=== PATIENT | male | born 1940 | race Asian ===

== ENCOUNTER 2023-04-25 12:12 | Outpatient (CLI) | payer MEDICARE | END 2023-04-25 23:59 | disposition critical access hospital (66) | LOC: EMS 12:12 | DX: R55 Syncope and collapse (principal); I95.9 Hypotension, unspecified | CPT/HCPCS: A0425; A0427 ==

== ENCOUNTER 2023-04-25 12:50 | Emergency (ER) | payer MEDICARE ==
[2023-04-25 13:12] VITALS: O2SAT 97
[2023-04-25] MEDS ORDERED: SODIUM CHLORIDE 0.9% 1,000 ML IV STA (13:26)
--- NOTE | 2023-04-25 13:32 | ED Physician Documentation ---
PD HPI SYNCOPE - Stated complaint Stated Complaint: FALL/SYNCOPE - Chief complaint Chief Complaint: Neuro - History obtained from History obtained from: Patient, Family - History of Present Illness Witnessed: Witnessed Timing - onset: Today Duration: Seconds (5) Preceding symptoms: No: Headache, Chest pain, Palpitations, Diaphoresis, Dyspnea, Abdominal pain, Nausea / vomiting, Light headed, Generalized weakness Associated symptoms: No: Seizure, Incontinant of urine, Incontinant of stool, Headache, Vision changes, Chest pain, Palpitations, Diaphoresis, Dyspnea, Nausea / vomiting, Abdominal pain Contributing factors: No: Recent med change, Decreased PO intake, Noxious stim ulae Injury occurred: Fell. No: Head injury, Neck injury, Bit tongue Pain level max: 0 Pain level now: 0 - Additional information Additional information: Patient is an 83-year-old male who states that he is visiting from [place]. He was with his family out at [place] today eating at a picnic table. When they were cleaning up he was sitting at the picnic table when the family witnessed him fall backwards and fall unconscious onto the ground. Estimated loss of consciousness was about 5 seconds. Patient states that he had 1 episode of syncope in the past when he was in "diabetic shock". EMS arrived on scene to find the patient hypotensive, 92/50. Improved to 114/60 with 500 mL of IV fluid. No fevers. No chills. No chest pain. No shortness of breath. Does not recall feeling lightheaded, dizzy or having palpitations. Review of Systems Constitutional: denies: Fever, Chills GI: denies: Vomiting, Diarrhea Skin: denies: Rash Musculoskeletal: denies: Neck pain, Back pain Neurologic: denies: Focal weakness, Numbness, Confused PD PAST MEDICAL HISTORY - Past Medical History Past Medical History: Yes Cardiovascular: Hypertension Neuro: CVA Endocrine/Autoimmune: Type 2 diabetes - Allergies Allergies/Adverse Reactions: Allergies Allergy/AdvReac Type Severity Reaction Status Date / Time No Known Drug Allergies Allergy Verified 04/25/23 13:06 - Living Situation Living Situation: reports: With family Living Arrangement: reports: At home - Social History Does the pt have substance abuse?: No PD ED PE NORMAL - Vitals Vital signs reviewed: Yes - General General: Alert and oriented X 3, No acute distress - HEENT HEENT: PERRL, Other (Left-sided facial droop, 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) - Neck Neck: Supple, no meningeal sign - Cardiac Cardiac: RRR, Strong equal pulses - Respiratory Respiratory: No respiratory distress, Clear bilaterally - Abdomen Abdomen: Soft, Non tender, Non distended - Derm Derm: Warm and dry - Extremities Extremities: No edema, No calf tenderness / cord - Neuro Neuro: Alert and oriented X 3, collections attorney 2-12 intact, No motor deficit, No sensory deficit, Normal speech Eye Opening: Spontaneous Motor: Obeys Commands Verbal: Oriented GCS Score: 15 - Psych Psych: Normal mood, Normal affect Results - Vitals Vitals: Vital Signs - 24 hr 04/25/23 04/25/23 04/25/23 13:00 13:32 15:28 Temperature 36.3 C L Heart Rate 73 80 Heart Rate [ 72 Sitting] Heart Rate [ 87 Standing] Heart Rate [ 76 Supine] Respiratory 16 19 Rate Blood Pressure 125/99 H 135/70 H Blood Pressure 120/67 [Sitting] Blood Pressure 121/62 [Standing] Blood Pressure 126/56 L [Supine] O2 Saturation 97 97 Oxygen O2 Source Room air - EKG (time done) 1252 EKG releavant findings:: EKG personally interpreted by author of this note. Relevant findings are: Rate: Rate (enter#) (73) Rhythm: NSR Shallowater: Normal Intervals: Prolonged MI QRS: Normal Ischemia: Normal ST segments - Labs Labs: Laboratory Tests 04/25/23 04/25/23 13:37 13:37 WBC 6.9 RBC 4.08 L Hgb 10.2 L Hct 33.1 L MCV 81.1 MCH 25.0 L MCHC 30.8 L RDW 15.7 H Plt Count 286 MPV 9.8 Neut # (Auto) 5.1 Lymph # (Auto) 0.6 L [place] # (Auto) 0.9 Eos # (Auto) 0.2 Baso # (Auto) 0.1 Absolute Nucleated RBC 0.02 Nucleated RBC % 0.3 Sodium 137 Potassium 3.7 Chloride 103 Carbon Dioxide 26 Anion Gap 8.0 BUN 62 H Creatinine 3.3 H Estimated GFR (MDRD) 18 L Glucose 180 H Calcium 9.0 Total Bilirubin 0.4 AST 20 ALT 17 Alkaline Phosphatase 64 Troponin I High Sens 12.3 Total Protein 7.0 Albumin 3.9 Globulin 3.1 Albumin/Globulin Ratio 1.3 Lipase 170 H PD Medical Decision Making - ED course Complexity details: reviewed results, re-evaluated patient, considered differential (No ST elevation NM, no aortic dissection, no PE, no tension pneumothorax, no aortic aneurysm), d/w patient, d/w family ED course: Lab results reviewed with patient and family. His daughter states his normal kidney function was about 21%. His kidney function seems mildly worsened today. He is no longer hypotensive. His blood sugar is mildly elevated. No arrhythmias on telemetry. No acute findings on laboratory testing otherwise. Does have some mild chronic anemia as well. Ambulating without difficulty here. We did discuss observation in the hospital for telemetry monitoring and further work-up, patient declines this. Patient will follow-up with his PCP when he returns home to [place]. I recommend increasing his fluid intake at home and returning if he worsens. Patient counseled regarding signs and symptoms for which I believe and urgent re-evaluation would be necessary. Patient with good understanding of and agreement to plan and is comfortable going home at this time This document was made in part using voice recognition software. While efforts are made to proofread this document, sound alike and grammatical errors may occur. Departure - Departure Disposition: Home, Self Care Clinical Impression: Hypotension Qualifiers: Hypotension type: unspecified hypotension type Qualified Code(s): I95.9 - Hypotension, unspecified Syncope Qualifiers: Syncope type: unspecified Qualified Code(s): R55 - Syncope and collapse Condition: Good Instructions: ED Hypotension All Causes, ED Fainting Unkn Cause Follow-Up: your,doctor in 1 week [Other] Comments: Please make sure you are drinking plenty of fluids. Please return if you worsen. Continue your current medications at home. Your blood pressure was low when the paramedics arrived and this was likely the cause of you passing out. Your blood pressure has returned to normal with IV fluids. Your lab work does show chronic renal disease that is consistent with your reported chronic renal disease. You also have a mild anemia that is common with chronic renal disease as well. Please follow-up with your doctor in [place] when you return home. Forms: PCP List Discharge Date/Time: 04/25/23 15:29
[2023-04-25 13:42] LABS: BASOPHILS # (AUTO) 0.1 10^3/uL (0.0-0.1); BASOPHILS % (AUTO) 0.7 %; EOSINOPHILS # (AUTO) 0.2 10^3/uL (0.0-0.7); EOSINOPHILS % (AUTO) 2.6 %; HCT - HEMATOCRIT 33.1 % (42.0-52.0); HGB - HEMOGLOBIN 10.2 g/dL (14.0-18.0); LYMPHOCYTES # (AUTO) 0.6 10^3/uL (1.5-3.5); MEAN CORPUSCULAR HGB CONC 30.8 g/dL (32.0-36.0); MEAN CORPUSCULAR VOLUME 81.1 fL (80.0-94.0); MEAN PLATELET VOLUME 9.8 fL (7.4-11.4); MONOCYTES # (AUTO) 0.9 10^3/uL (0.0-1.0); MONOCYTES % (AUTO) 12.5 %; NEUTROPHILS # (AUTO) 5.1 10^3/uL (1.5-6.6); NEUTROPHILS % (AUTO) 74.6 %; NRBC ABSOLUTE COUNT (AUTO) 0.02 x10^3/uL; NUCLEATED RED BLOOD CELLS AUTO 0.3 /100WBC; PLT - PLATELET COUNT 286 10^3/uL (130-450); RED BLOOD COUNT 4.08 10^6/uL (4.70-6.10); RED CELL DISTRIBUTION WIDTH 15.7 % (12.0-15.0); WHITE BLOOD COUNT 6.9 x10^3/uL (4.8-10.8)
[2023-04-25 13:59] LABS: ALBUMIN 3.9 g/dL (3.2-5.5); ALBUMIN/GLOBULIN RATIO 1.3 (1.0-2.2); BILIRUBIN,TOTAL 0.4 mg/dL (0.2-1.0); CREATININE 3.3 mg/dL (0.6-1.3); POTASSIUM 3.7 mmol/L (3.5-4.5)
[2023-04-25 14:02] LABS: TROPONIN I HIGH SENSITIVITY 12.3 ng/L (2.3-19.7)
--- NOTE | 2023-04-25 14:03 | XRAY Report ---
PROCEDURE: Chest 1 View X-Ray INDICATIONS: Chest Pain TECHNIQUE: One view of the chest was acquired. COMPARISON: None. FINDINGS: Surgical changes and devices: None. Lungs and pleura: No pleural effusions or pneumothorax. Lungs are clear. Mediastinum: Mediastinal contours appear normal. Heart size is normal. Bones and chest wall: No suspicious bony lesions. Overlying soft tissues appear unremarkable. IMPRESSION: No acute cardiopulmonary process. Reviewed by: Solo Adame MD on 04/25/2023 2:01 PM PDT Approved by: Solo Adame MD on 04/25/2023 2:01 PM PDT Station ID: [id number]
[2023-04-25 15:30] VITALS: BP 135/70
== END 2023-04-25 15:29 | disposition home or self-care (01) ==
LOC: ED 12:50
DX: R55 Syncope and collapse (principal); I95.9 Hypotension, unspecified; N18.9 Chronic kidney disease, unspecified; D64.9 Anemia, unspecified
CPT/HCPCS: 36415; 80053; 83690; 84484; 85025; 93005; 96360; 99283